=== PATIENT | female | born 1940 | race Two or more races ===

== ENCOUNTER 2016-09-25 07:03 | Emergency (ER) | payer MEDICARE, MEDICAID ==
[~2016-09-25] VITALS: Ht 152.4 cm; Wt 49.9 kg
[~2016-09-25 07:03] MED LIST: NEURONTIN300 MG ORAL; NKM; ZOFRAN ODT4 MG ORAL
[2016-09-25] MEDS ORDERED: IBUPROFEN600 MG ORAL (09:38)
[2016-09-25 10:05] VITALS: BP 130/80
--- NOTE | 2016-09-25 11:15 | Diagnostic Imaging Report ---
Indication: Left ankle pain, post trauma Technique: 3 views of the left ankle Comparison: none Findings: Surgical sideplate and screws are seen reducing distal fibular fracture. The hardware appears to be intact and the fibula appears well aligned. On the oblique view, there is a lucency extending through or the fibula which may indicate incomplete healing. No definite acute injury is demonstrated. 3 screws are seen reducing old medial malleolar fracture, which appears to be well-healed. Impression: No definite acute bony trauma Postsurgical changes, as described. Note possible incomplete union of the distal fibular fracture
--- NOTE | 2016-09-25 14:11 | Emergency Room Report ---
History of Present Illness General Chief Complaint: Lower Extremity Injury Source: Patient, Family Member Present Illness HPI 76 YO F with previous left ankle fracture and "hardware" endorses rolling ankle last night on accidental fall. Denies hitting head, other injury. Feels well otherwise. Allergies: Coded Allergies: PENICILLIN G (Verified Allergy, Unknown, 02/22/16) Uncoded Allergies: PCN (Allergy, Unknown, 03/07/14) Patient History Past Surgical History: other - left ankle fracture Pertinent Family History: none Last Menstrual Period: na Now: No Immunizations: UTD Reviewed Nursing Documentation: PMH: Agreed, PSxH: Agreed Nursing Documentation-PMH Past Medical History: No History, Except For Hx Cancer: No Hx Gastrointestinal Problems: No Hx Neurological Problems: No Review of Systems All Other Systems: negative except mentioned in HPI Physical Exam Vital Signs Date Time Temp Pulse Resp B/P Pulse Ox O2 Delivery O2 Flow Rate FiO2 09/25/16 07:20 98.4 69 18 147/64 98 Room Air Sp02 EP Interpretation: reviewed, normal General Appearance: normal inspection, well appearing, no apparent distress, alert Head: atraumatic ENT: normal ENT inspection, hearing grossly normal, normal voice Neck: normal inspection, full range of motion, supple, no bony tend Respiratory: normal inspection, lungs clear, normal breath sounds, no respiratory distress, no retraction, no wheezing Cardiovascular #1: regular rate, rhythm, no edema Gastrointestinal: normal inspection, normal bowel sounds, non tender, soft, no guarding, no hernia Genitourinary: no CVA tenderness Musculoskeletal: normal inspection, back normal, normal range of motion, Berenice' s Sign negative, other - left ankle: Bruising to left lateral malleolus with mild ttp. No open injury. 2++ dorsalis pedis pulse. Sensation intact. No ttp to tib/fib or knee Neurologic: normal inspection, alert, oriented x3, responsive, heel cover softener III-XII nml as tested Medical Decision Making Diagnostic Impression: Primary Impression: Left ankle sprain Qualified Codes: S93.402A - Sprain of unspecified ligament of left ankle, initial encounter ER Course Left ankle sprain Xray on official Rad review do not show fx, dislocation Given significant ttp, bruising, will splint anyway Recommended PMD followup in 2-3 days Last Vital Signs Date Time Temp Pulse Resp B/P Pulse Ox O2 Delivery O2 Flow Rate FiO2 09/25/16 10:05 78 18 130/80 99 Room Air 09/25/16 07:20 98.4 Status: improved Disposition: HOME, SELF-CARE Condition: Improved Scripts Ibuprofen* (MOTRIN*) 600 Mg Tablet 600 MG ORAL Q8H Y for For Pain, #30 TAB 0 Refills Prov: GLORY ASENCIO M.D. 09/25/16 Patient Instructions: Ankle Sprain Additional Instructions: - Keep splint clean/ dry and followup with primary doctor - Take ibuprofen 3x a day as needed for pain GLORY ASENCIO M.D. Sep 25, 2016 14:11
== END 2016-09-25 10:52 | disposition home or self-care (01) ==
LOC: EMR 07:41
DX: S93.402A Sprain of unspecified ligament of left ankle, initial encounter (principal); Z88.0 Allergy status to penicillin; W19.XXXA Unspecified fall, initial encounter; Y92.9 Unspecified place or not applicable; Y99.8 Other external cause status
CPT/HCPCS: 29515; 99283

== ENCOUNTER 2016-09-26 12:58 | Emergency (ER) | payer MEDICARE, MEDICAID ==
[~2016-09-26] VITALS: Ht 162.6 cm; Wt 52.6 kg
[~2016-09-26 12:58] MED LIST changes: +IBUPROFEN600 MG ORAL
[2016-09-26 13:53] VITALS: BP 110/67
--- NOTE | 2016-09-26 14:05 | Emergency Room Report ---
History of Present Illness General Chief Complaint: General Complaint Source: Patient Present Illness HPI 76-year-old female presents emergency department complaining of having a splint applied here yesterday that is too heavy and makes it difficult for her to walk. Patient presents with son who states the patient was diagnosed with ankle sprain no fracture and that they believed the splint that has been applied is excessive for such a minute diagnosis. Patient reports mild pain vital in severity to the left ankle states that swelling and bruising has improved slightly denies numbness or tingling in the affected extremity. Patient denies new trauma or fall. Denies numbness tingling or loss of sensation or gross motor movements of the extremities, incontinence of bowel or bladder. Denies CP, Palpitations, LOC, AMS, dizziness, Changes in Vision, Sensation, paresthesias, or a sudden severe headache. Allergies: Coded Allergies: PENICILLIN G (Verified Allergy, Unknown, 02/22/16) Uncoded Allergies: PCN (Allergy, Unknown, 03/07/14) Patient History Limited by: language barrier Past Medical History: see triage record Past Surgical History: none Pertinent Family History: none Reviewed Nursing Documentation: PMH: Agreed, PSxH: Agreed Nursing Documentation-PMH Past Medical History: No Stated History Hx Cancer: No Hx Gastrointestinal Problems: No Hx Neurological Problems: No Review of Systems All Other Systems: negative except mentioned in HPI Physical Exam Vital Signs Date Time Temp Pulse Resp B/P Pulse Ox O2 Delivery O2 Flow Rate FiO2 09/26/16 13:29 99.3 87 16 110/67 97 Room Air Sp02 EP Interpretation: reviewed, normal General Appearance: no apparent distress, alert, GCS 15, non-toxic Head: normocephalic, atraumatic Eyes: bilateral eye PERRL, bilateral eye normal inspection ENT: hearing grossly normal, normal pharynx, no angioedema, normal voice Neck: full range of motion, supple/symm/no masses Respiratory: lungs clear, normal breath sounds, speaking full sentences Cardiovascular #1: regular rate, rhythm, no edema, normal capillary refill Cardiovascular #2: 2+ dorsalis pedis (R), 2+ dorsalis pedis (L) Musculoskeletal: back normal, gait/station normal, normal range of motion, no calf tenderness, swelling - lateral and dorsum of the left ankle and foot. , tender - lateral and dorsum of the left ankle and foot. Neurologic: alert, oriented x3, responsive, motor strength/tone normal, sensory intact, speech normal Psychiatric: judgement/insight normal, memory normal, mood/affect normal, no suicidal/homicidal ideation Skin: normal color, no rash, warm/dry, well hydrated, hematoma - healing hematoma of the left lateral ankle Medical Decision Making PA Attestation Dr. Hoover is my supervising Physician whom patient management has been discussed with. Diagnostic Impression: Primary Impression: Left ankle sprain Qualified Codes: S93.402D - Sprain of unspecified ligament of left ankle, subsequent encounter ER Course 76-year-old female presents emergency department complaining of having a splint applied here yesterday that is too heavy and makes it difficult for her to walk. Patient presents with son who states the patient was diagnosed with ankle sprain no fracture and that they believed the splint that has been applied is excessive for such a minute diagnosis. Patient reports mild pain vital in severity to the left ankle states that swelling and bruising has improved slightly denies numbness or tingling in the affected extremity. Patient denies new trauma or fall. Ddx considered but are not limited to Fracture, dislocation, contusion, Sprain/ Strain/Spasm, Vital signs: are WNL, pt. is afebrile H&PE are most consistent with ankle sprain subsequent encounter for re- application of splint. ORDERS: - X-ray reviewed from yesterday : no fractures -Patient is currently in a posterior splint with sugar tong that reaches up to the knee. Discussed with patient that a new splint is recommended we will have water technician to apply a shorter splint that will be easier for her to walk with. ED INTERVENTIONS: New Left short posterior Splint applied by water technician. Pt. remains neurovascularly intact. DISCHARGE: At this time pt. is stable for d/c to home. Will provide printed patient care instructions, and any necessary prescriptions. Care plan and follow up instructions have been discussed with the patient prior to discharge. Last Vital Signs Date Time Temp Pulse Resp B/P Pulse Ox O2 Delivery O2 Flow Rate FiO2 09/26/16 13:53 16 110/67 97 Room Air 09/26/16 13:29 99.3 87 Disposition: HOME, SELF-CARE Condition: Stable Patient Instructions: Cast or Splint Care, [id number] Additional Instructions: Take any previously prescribed medications as directed. Follow up with PCP in 3-5 days Return sooner to ED if new symptoms occur, or current symptoms become worse. - Please note that this Emergency Department Report was dictated using [employer] technology software, occasionally this can lead to erroneous entry secondary to interpretation by the dictation equipment. Catie Mcbride Sep 26, 2016 14:05
[2016-09-26 14:16] VITALS: BP 110/67
== END 2016-09-26 14:19 | disposition home or self-care (01) ==
LOC: EMR 14:10
DX: S93.402D Sprain of unspecified ligament of left ankle, subsequent encounter (principal)
CPT/HCPCS: 99283